=== PATIENT | female | born 1975 | race Caucasian/White ===

== ENCOUNTER 2017-07-10 23:44 | Emergency (ER) | payer OTHER ==
[~2017-07-10 23:44] MED LIST: ACET1TAB12 PO; ALBU8.5H4 IH; CITA40TA PO; FLUT1DIS5 IH; IBUP800T28 PO; LORA-303 PO; ZLP5T PO
[2017-07-10 23:51] VITALS: BP 127/89; PULSE 97; RESP 16; O2SAT 99
[2017-07-11] MEDS ORDERED: Lidocaine-Epi-Tetracaine Solution 3 mL Syringe TOPICAL ONE (01:22)
--- NOTE | 2017-07-11 01:55 | ED.REPORT ---
HPI-General Illness Date of Service Jul 11, 2017 ED Provider: Philippe Padgett MD Pt is a 42 y/o female who presents to the ED c/o a laceration to the middle finger on her right hand onset 2129. She states she was using a serrated knife when she cut her middle finger, and describes her pain as "throbbing", mild to moderate in severity, not radiating from the tip of her finger. She denies fever , chills, headache, LOC, itching, rash, nausea, vomiting, diarrhea, chest pain, SOB, one-sided weakness, numbness/tingling, vision changes, or any other symptoms. Nursing Notes Stated Complaint: CUT ON MIDDLE FINGER,RIGHT HAND Chief Complaint: Laceration Nursing Notes Reviewed: Yes Allergies: Coded Allergies: Potassium Clavulanate (Verified Allergy, Severe, 07/10/17) TAPE (Verified Allergy, Severe, PLASTIC TAPE-RED,ITCHING, 07/10/17) amoxicillin trihydrate (Verified Allergy, Severe, 07/10/17) trazodone (Verified Allergy, Unknown, 07/10/17) Uncoded Allergies: SULFA (Allergy, Severe, HIVES, 08/26/09) DOXYCYLINE (Allergy, Unknown, 08/21/14) PCN (Allergy, Unknown, HIVES, 08/21/14) Scheduled Citalopram Hydrobromide (Celexa) 40 Mg Tablet 60 MG PO DAILY Scheduled PRN Acetaminophen/Codeine 300-30mg (Tylenol/Codeine #3) 1 Each Tablet 1 EACH PO PRN PRN PRN For Cough Albuterol HFA (Albuterol HFA) 8.5 Gm Hfa.aer.ad 2 PUFF IH Q4 PRN PRN For Shortness of Breath Fluticasone/Salmeterol (Advair 500-50 Diskus) 1 Each Disk.w.dev 2 PUFF IH PRN PRN PRN For Shortness of Breath Ibuprofen (Ibuprofen) 800 Mg Tablet 800 MG PO QID PRN PRN For Pain Lorazepam (Ativan) 1 Mg Tablet 1 MG PO TID PRN PRN For Anxiety Zolpidem (Ambien) 5 Mg Tab 10 MG PO HS PRN PRN For Insomnia General Time Seen by : 00:12 Chief Complaint Other (Laceration to right middle finger) Hx Obtained From: Patient Arrived By: Walk-in Sudden in Onset?: Yes Onset Occurred: 1 - 4 hours ago Symptom Duration: Constant Caused by: Accidental Quality: Painful, Throbbing Severity: Current: Mild Severity: Maximum: Moderate Pertinent Negative: Pt denies other symptoms Recent Healthcare: No recent doctor visit, No recent hospitalization Similar Sx Previous: No Past Medical History Past Medical History Anxiety Depression Reports: Asthma Past Surgical History Sinus surgery x3 Reports: Cholecystectomy, Hysterectomy, Tonsillectomy Smoking History Never Smoker Social History Alcohol Use: "Social" Other Social History: Ambulatory Status Independent Review of Systems Full Review of Systems Constitutional: Denies: Chills, Fever Eyes: Denies: Blurred bilateral Respiratory: Denies: Shortness of breath Cardiovascular: Denies: Chest pain GI: Denies: Diarrhea, Nausea, Vomiting Musculoskeletal: Reports: Extremity pain (laceration to right middle finger) Skin: Denies Rash Allergy / Immune: Denies: Itching Neurologic: Denies: Change LOC, Focal weakness, Headache, Vision change Psychiatric: Denies: Change mental status Complete sys rev & neg: except as marked. Physical Exam General: Well appearing, no acute distress HEENT: mucous membranes moist Pulm: Speaking comfortably with unlabored respirations, no respiratory distress Card: Regular rate, good peripheral perfusion Abd: Soft, nontender, nondistended Skin: Warm and dry, no rashes or pallor appreciated. Tuft of the distal right middle finger with several linear lacerations that are 1-2 mm deep. Involving only the superficial layer of skin. No tendon, nerve, or vascular involvement. No foreign bodies or active bleeding. Psych: Appropriate mood and affect. Behavior appears normal. Neuro: AOx3, strength and sensation to light touch grossly intact throughout. Extremities: Moving all extremities, no peripheral edema appreciated Vital Signs Vital Signs Date Time Temp Pulse Resp B/P Pulse Ox O2 Delivery O2 Flow Rate FiO2 07/10/17 23:51 36.6 97 16 127/89 99 Room Air Initial VS: Reviewed, Vital signs normal Procedures Laceration Management Laceration Management: LET used for anesthetic Time: 02:31 Procedure Performed by: ED physician Consent / Setup / Site Prep: Informed consent provided, Consent from patient , Time-out performed, Hand hygiene observed Location of Wound: Right middle finger Superficial layer of skin only, 1-2mm deep Digital Block: No Irrigation: Copious Foreign Body Explore / Removal: Explored for foreign body Repair Skin: Dermabond Post-Procedure / Complications: No complications, Condition improved, Tolerated procedure well, Patient stable Re-Eval/Medical Decision Med Decision/Clinical Course 42-year-old female with superficial laceration to the tuft of her right middle finger. No nailbed involvement. Neurovascularly intact. Tetanus not up-to- date; TDAP given here. Laceration repair performed as per above, tolerated well. Plan discharge home with careful return precautions, PCP follow-up. Patient agreeable to the plan as stated, no further questions. Source of Hx: Old records Time of Eval: 02:29 Re-Evaluation/Progress Note: Pt rechecked. Performed laceration management procedure. Discussed plan for discharge. Patient understands and agrees with plan. F/U instructions and RTER warnings given. All questions addressed at this time. Counseled Regarding: Diagnosis, Need for follow-up, When/why to return to ED Discharge & Departure Primary Impression: Finger laceration Encounter type: initial encounter Qualified Code: S61.219A - Laceration without foreign body of unspecified finger without damage to nail, initial encounter Disposition: Home Discharge Condition All VS Reviewed: Yes Condition: Stable Patient Instructions: Finger Laceration (ED) Additional Instructions: Thank you for allowing us to be a part of your care in the ED today. You sustained a laceration to your finger, and we applied tissue glue (Dermabond ) to repair it. Please schedule a follow up appointment with your primary care physician tomorrow for a recheck. Please return to the emergency department for any new or worsening symptoms including any one sided weakness/numbness, increasing finger pain, redness, fevers, chills, or if there's anything else of concern to you. Referrals: Martin Orr MD (PCP) Scribe Attestation Portions of this note were transcribed by Adeoal Flower. I, Dr. Padgett, personally performed the history, physical exam and medical decision-making; I reviewed and confirmed the accuracy of the information in the transcribed note. copies to: Martin Orr MD, William B MD Jul 11, 2017 01:55 Adeola Flower Jul 11, 2017 02:24
[2017-07-11] MEDS ORDERED: TdaP Vaccine 0.5 mL Inj IM ONE (02:25)
[2017-07-11] MEDS ORDERED: Tissue Adhesive Liq (CS Supplied) TOPICAL ONE (02:25)
== END 2017-07-11 03:20 | disposition home or self-care (01) ==
LOC: SED 23:44
DX: S61.212A Laceration without foreign body of right middle finger without damage to nail, initial encounter (principal); W26.0XXA Contact with knife, initial encounter; Y93.89 Activity, other specified; Y92.89 Other specified places as the place of occurrence of the external cause; Y99.8 Other external cause status; F41.8 Other specified anxiety disorders; J45.909 Unspecified asthma, uncomplicated; Z23 Encounter for immunization; Z88.1 Allergy status to other antibiotic agents; Z88.8 Allergy status to other drugs, medicaments and biological substances; Z91.048 Other nonmedicinal substance allergy status